=== PATIENT | male | born 1955 | race Caucasian/White ===

== ENCOUNTER → 2024-02-09 | Outpatient (CLI) | payer OTHER ==
[~2024-02-09] MED LIST: CIPRO500 MG PO; CIPROFLOXACIN500 M4 PO; FOLIC ACID0.8 M1 PO; HYDROCODONE BIT1 T11 PO; HYDROCODONE-AC1 EAC1 PO; INDOCIN25 MG PO; METRONIDAZOLE500 M1 PO; NKHM PO
== END | disposition home or self-care (01) ==
LOC: ORTHO 00:23
PROVIDERS: ATTEND Orthopaedic Surgery
DX: M17.0 Bilateral primary osteoarthritis of knee (principal); M25.762 Osteophyte, left knee; M25.761 Osteophyte, right knee; M25.561 Pain in right knee

== ENCOUNTER → 2024-12-07 | Outpatient (CLI) | payer OTHER | END | disposition home or self-care (01) | LOC: CT 12:39 | PROVIDERS: ATTEND Orthopaedic Surgery | DX: M17.0 Bilateral primary osteoarthritis of knee (principal); M25.462 Effusion, left knee; M25.461 Effusion, right knee ==

== ENCOUNTER 2025-01-25 01:11 | Inpatient (IN) | payer OTHER ==
[2025-01-24 09:27] LABS: BASO # 0.1 10*3/uL (0.0-0.1); BASO % 0.7 % (0.0-1.0); EOS # 0.1 10*3/uL (0.0-0.4); EOS % 1.2 % (1.0-4.0); MEAN CELL VOLUME 100.0 fl (80.0-94.0); MEAN CORPUSCULAR HGB 33.9 pg (27.0-31.0); MEAN PLATELET VOLUME 10.8 fl (9.6-12.3); MONO # 1.1 10*3/uL (0.1-1.0); MONO % 9.7 % (3.0-9.0); NEUT # 7.3 10*3/uL (2.3-7.9); NEUT % 64.0 % (47.0-73.0); NUCLEATED RED BLOOD CELL 0.0 % (0.0-0.0); NUCLEATED RED BLOOD CELL 0.0 10*3/uL (0.0-0.0); PLATELET COUNT AUTOMATED 234 10*3/uL (130-400); RED CELL DISTRI WIDTH 12.8 % (0-14.5)
[2025-01-24 09:30] LABS: BILIRUBIN 1+ (Negative); BLOOD Negative (Negative); CLARITY Clear (Clear); COLOR Dark Yellow (Yellow); KETONE Trace (Negative); LEUKO ESTERASE Negative (Negative); NITRITE Negative (Negative); PH 5.0 (4.5-8.0); SPECIFIC GRAVITY >= 1.030 (1.001-1.030); UROBILINOGEN 1.0 E.U./dl (0.0-1.0)
[2025-01-24 09:47] LABS: ACT PARTIAL THROMBO TIME 27.9 SECONDS (20.0-32.1)
[2025-01-24 09:51] LABS: BUN 9 mg/dl (9-23); SGPT/ALT 11 U/L (5-49)
[2025-01-24 10:06] LABS: BACTERIA TRACE
[2025-01-25] VITALS (9 sets, daily range): BP systolic 133–151; BP diastolic 50–74
[~2025-01-25] VITALS: Ht 175.2 cm; Wt 87.1 kg
[2025-01-25] MEDS ORDERED: TRANEXAMIC ACID IN NACL,ISO-OS 100 ML IV ONE ×2 (06:46→07:00)
[2025-01-25] MEDS ORDERED: ACETAMINOPHEN 100 ML IV ONE (07:45)
[2025-01-25] MEDS ORDERED: Lactated Ringer's Solution 2,000 ML IV ONE (07:45)
[2025-01-25] MEDS ORDERED: Acetaminophen/Oxycodone 5 MG/325 MG TABLET PO PRN (08:05)
[2025-01-25] MEDS ORDERED: Ondansetron Hydrochloride 4 MG/2 ML VIAL IV PRN (08:05)
[2025-01-25] MEDS ORDERED: Bupivacaine Hydrochloride/Ep2 30 ML VIAL ONE (08:20)
[2025-01-25] MEDS ORDERED: Cholecalciferol 2,000 UNIT TABLET (50 MCG) PO SCH (10:00)
[2025-01-25] MEDS ORDERED: DOCUSATE SODIUM 100 MG CAP PO SCH (10:00)
[2025-01-25] MEDS ORDERED: PROPOFOL 200 MG/20 ML VIAL IV ONE (12:29)
[2025-01-25] MEDS ORDERED: Dexamethasone Sodium Phospha 4 MG/ML VIAL IV ONE (12:29)
[2025-01-25] MEDS ORDERED: Midazolam Hydrochloride 2 MG/2 ML VIAL IV ONE (12:29)
[2025-01-25] MEDS ORDERED: MAGNESIUM SULFATE 1 GM/2 ML VIAL IV ONE (12:29)
[2025-01-25] MEDS ORDERED: ePHEDrine Sulfate 25 MG/5 ML SYRINGE IV ONE (12:29)
[2025-01-25] MEDS ORDERED: TEMAZEPAM 15 MG CAP PO PRN (22:00)
[2025-01-26] VITALS: BP 145/52
[2025-01-26 05:11] LABS: BUN 14 mg/dl (9-23)
[2025-01-26 06:29] LABS: MEAN CORPUSCULAR HGB 33.9 pg (27.0-31.0); MEAN PLATELET VOLUME 11.4 fl (9.6-12.3); NUCLEATED RED BLOOD CELL 0.0 % (0.0-0.0); NUCLEATED RED BLOOD CELL 0.0 10*3/uL (0.0-0.0); PLATELET COUNT AUTOMATED 226 10*3/uL (130-400); RED CELL DISTRI WIDTH 12.7 % (0-14.5)
[2025-01-26 06:30] LABS: MANUAL DIFF REFLEX YES
[2025-01-26 06:31] LABS: MEAN CELL VOLUME 98.4 fl (80.0-94.0)
[2025-01-26 06:52] LABS: PLATELET SUFFICIENCY NORMAL (NORMAL)
[2025-01-26 08:00] VITALS: BP 134/44
[2025-01-26] MEDS ORDERED: ASPIRIN ENTERIC COATED 81 MG TAB PO SCH (10:00)
[2025-01-26 12:00] VITALS: BP 134/60
[2025-01-26] MEDS ORDERED: VITAMIN D350 MCG PO (16:38)
[2025-01-26] MEDS ORDERED: HYDROCODONE-AC1 EAC1 PO (16:38)
[2025-01-26] MEDS ORDERED: ASPIRIN ADULT L81 M2 PO (16:38)
== END 2025-01-26 19:55 | DRG 470 ==
LOC: SDC 01:11 → 4E 08:22 → SDC 08:30 → 4E 10:23
PROVIDERS: Orthopaedic Surgery; ADMIT Internal Medicine; ATTEND Internal Medicine
PROC: 0SRD0JA Replacement of Left Knee Joint with Synthetic Substitute, Uncemented, Open Approach (ICD-10-PCS; principal; 2025-01-25)
DX: M17.12 Unilateral primary osteoarthritis, left knee (principal); G25.0 Essential tremor; Z96.652 Presence of left artificial knee joint; D53.9 Nutritional anemia, unspecified; F17.200 Nicotine dependence, unspecified, uncomplicated; F41.9 Anxiety disorder, unspecified; Z82.49 Family history of ischemic heart disease and other diseases of the circulatory system; Z90.49 Acquired absence of other specified parts of digestive tract; Z98.42 Cataract extraction status, left eye; Z98.41 Cataract extraction status, right eye

== ENCOUNTER → 2025-02-09 | Outpatient (CLI) | payer OTHER ==
[~2025-02-09] MED LIST changes: +ASPIRIN ADULT L81 M2 PO; +VITAMIN D350 MCG PO
== END ==
LOC: ORTHO 01:31
PROVIDERS: ATTEND Orthopaedic Surgery
DX: M17.12 Unilateral primary osteoarthritis, left knee (principal)

== ENCOUNTER → 2025-03-14 | Outpatient (CLI) | payer OTHER | END | disposition home or self-care (01) | LOC: ORTHO 05:07 | PROVIDERS: ATTEND Orthopaedic Surgery | DX: Z47.1 Aftercare following joint replacement surgery (principal); Z96.652 Presence of left artificial knee joint ==